=== PATIENT | female | born 1985 | race American Indian/Alaskan Native ===

== ENCOUNTER 2016-12-29 04:39 | Emergency (ER) | payer OTHER ==
[2016-12-29 05:15] VITALS: BP 116/66
[2016-12-29 05:27] LABS: Basophils % (Auto) 0.8 % (0.0-1.8); Eosinophils % (Auto) 3.8 % (0.0-4.3); Hematocrit 37.7 % (30.3-42.9); Hemoglobin 12.4 gm/dl (10.1-14.3); Mean Corpuscular HGB Conc 33 % (30-34); Mean Corpuscular Hemoglobin 27 pg (28-32); Mean Corpuscular Volume 82 fl (79-97); Platelet Count 289 K/mm3 (140-440); Red Cell Distribution Width 13.5 % (13.2-15.2); White Blood Count 9.3 K/mm3 (4.5-11.0)
[2016-12-29 05:50] LABS: Alanine Aminotransferase 12 units/L (7-56); Albumin 3.9 g/dL (3.9-5); Albumin/Globulin Ratio 1.4 %; Alkaline Phosphatase 54 units/L (35-129); Anion Gap 16 mmol/L; BUN/Creatinine Ratio 16.66; Bilirubin,Total < 0.2 mg/dL (0.1-1.2); Blood Urea Nitrogen 10 mg/dL (7-17); Calcium 9.1 mg/dL (8.4-10.2); Carbon Dioxide 24 mmol/L (22-30); Chloride 97.5 mmol/L (98-107); Glucose 115 mg/dL (65-100); Lipase 31 units/L (13-60); Potassium 3.6 mmol/L (3.6-5.0); Sodium 134 mmol/L (137-145); Total Protein 6.7 g/dL (6.3-8.2)
[2016-12-29 06:14] LABS: Bacteria,Urine 4+ /HPF (Negative); Bilirubin,Urine NEG (Negative); Blood,Urine MOD (Negative); Ketones,Urine NEG (Negative); Leukocyte Esterase,Urine MOD (Negative); Mucus,Urine 3+ /HPF; Nitrite,Urine POS (Negative); Protein,Urine <15 mg/dL mg/dL (Negative); Urobilinogen,Urine < 2.0 mg/dL (<2.0)
== END 2016-12-29 05:19 | disposition left against medical advice (07) ==
LOC: ED 04:39
DX: N89.8 Other specified noninflammatory disorders of vagina (principal); Z53.21 Procedure and treatment not carried out due to patient leaving prior to being seen by health care provider
CPT/HCPCS: 36415; 80053; 81001; 83690; 84703; 85025

== ENCOUNTER 2017-05-23 09:35 | Outpatient (CLI) | payer MEDICAID | END 2017-05-23 12:05 | disposition home or self-care (01) | LOC: LAB 09:35 → TRG 09:35 | PROVIDERS: ATTEND Obstetrics & Gynecology | DX: O36.0930 Maternal care for other rhesus isoimmunization, third trimester, not applicable or unspecified (principal); Z3A.28 28 weeks gestation of pregnancy | CPT/HCPCS: 86850; 86900; 86901; 96372; J2790 ==

== ENCOUNTER 2017-07-15 02:13 | Outpatient (CLI) | payer OTHER, MEDICAID ==
[2017-07-15 02:46] VITALS: BP 124/63
[2017-07-15 03:50] LABS: Bacteria,Urine 1+ /HPF (Negative); Bilirubin,Urine NEG (Negative); Blood,Urine NEG (Negative); Ketones,Urine TR mg/dL (Negative); Leukocyte Esterase,Urine LG (Negative); Mucus,Urine 3+ /HPF; Nitrite,Urine NEG (Negative)
[2017-07-15] MEDS ORDERED: MILK OF MAGNESIA PO ONE (04:09)
[2017-07-15] MEDS ORDERED: LACTATED RINGERS 1,000 ML IV SCH (05:00)
== END 2017-07-15 05:28 | disposition home or self-care (01) ==
LOC: EDSTATUS 02:26 → TRG 02:29
PROVIDERS: ATTEND Obstetrics & Gynecology
DX: O24.419 Gestational diabetes mellitus in pregnancy, unspecified control (principal); O26.893 Other specified pregnancy related conditions, third trimester; R07.9 Chest pain, unspecified; R42 Dizziness and giddiness; Z3A.35 35 weeks gestation of pregnancy
CPT/HCPCS: 81001; 96360; J7120; 59025

== ENCOUNTER 2017-08-09 13:05 | Inpatient (IN) | payer OTHER, MEDICAID ==
[2017-08-09] MEDS ORDERED: BRETHINE SUB-Q PRN (13:23)
[2017-08-09] MEDS ORDERED: ePHEDrine SULFATE IV PRN (13:23)
[2017-08-09] MEDS ORDERED: XYLOCAINE 2% INFILTRATI ONE (13:23)
[2017-08-09] MEDS ORDERED: BRETHINE IVP PRN (13:23)
[2017-08-09] MEDS ORDERED: SUBLIMAZE IV PRN (13:23)
[2017-08-09] MEDS ORDERED: POLYCILLIN/NS 2 GM/100 ML 2 GM/100 ML BAG IV ONE (13:23)
[2017-08-09] MEDS ORDERED: MINERAL OIL PO PRN (13:23)
--- NOTE | 2017-08-09 13:43 | History and Physical Report ---
History of Present Illness Date of examination: 08/09/17 Date of admission: 08/09/17 13:05 Chief complaint: in labor History of present illness: 32 y/o in active labor presents to office today and sent to hospital. GBS positive. care at [facility] since 7 weeks gestation. RH negative, Rhogam given 05/19. 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: herpes Social history: no significant social history - Obstetrical History Expected Date of Delivery: 08/15/17 Actual Gestation: 39 Week(s) 1 Day(s) : 5 Para: 3 Spontaneous Abortions: 2 Number of Living Children: 3 Medications and Allergies Allergies Allergy/AdvReac Type Severity Reaction Status Date / Time No Known Allergies Allergy Verified 11/01/13 09:02 Home Medications Medication Instructions Recorded Confirmed Last Taken Type Pnv95/Ferrous Fumarate/FA 1 each PO DAILY 05/23/17 05/23/17 1 Day Ago History [ Caplet] Active Meds: Active Medications Ephedrine Sulfate (Ephedrine Sulfate) 10 mg IV Q2M PRN PRN Reason: Hypotension Stop: 08/09/17 13:28 Fentanyl (Sublimaze) 100 mcg IV Q2H PRN PRN Reason: Labor Pain Ampicillin Sodium (Polycillin/Ns 1 Gm/50 Ml) 1 gm in 50 mls @ 100 mls/hr IV Q4HR MEERA PRN Reason: Protocol Ampicillin Sodium (Polycillin/Ns 2 Gm/100 Ml) 2 gm in 100 mls @ 100 mls/hr IV ONCE ONE PRN Reason: Protocol Stop: 08/09/17 14:22 Lactated Ringer's (Lactated Ringers) 1,000 mls @ 125 mls/hr IV DIRECT MEERA Oxytocin/Sodium Chloride (Pitocin/Ns 20 Unit/1000ml Drip) 20 units in 1,000 mls @ 125 mls/hr IV DIRECT MEERA Oxytocin/Sodium Chloride (Pitocin/Ns 30 Unit/500ml) 30 units in 500 mls @ 4 mls /hr IV TITR MEERA PRN Reason: Protocol Oxytocin/Sodium Chloride (Pitocin/Ns 30 Unit/500ml) 30 units in 500 mls @ 1 mls /hr IV TITR MEERA; 1 MILLIUNITS/MIN PRN Reason: Protocol Lidocaine (Xylocaine 2%) 20 ml INFILTRATI ONCE ONE Stop: 08/09/17 13:24 Mineral Oil (Mineral Oil) 30 ml PO QHS PRN PRN Reason: Constipation Terbutaline Sulfate (Brethine) 0.25 mg SUB-Q ONCE PRN PRN Reason: Hyperstimulation/Hypertonicity Stop: 08/09/17 13:24 Terbutaline Sulfate (Brethine) 0.25 mg IVP ONCE PRN PRN Reason: Hyperstimulation/Hypertonicity Stop: 08/09/17 13:24 Review of Systems All systems: negative - Vital Signs Vital signs: Vital Signs Temp Pulse Resp BP 98.9 F 96 H 18 123/70 08/09/17 13:30 08/09/17 13:30 08/09/17 13:30 08/09/17 13:30 Temp Pulse Resp BP Pulse Ox 98.9 F 96 H 18 123/70 08/09/17 13:30 08/09/17 13:33 08/09/17 13:30 08/09/17 13:33 - Physical Exam Breasts: Positive: deferred Cardiovascular: Regular rate Lungs: Positive: Clear to auscultation Abdomen: Positive: soft Genitourinary (Female): Positive: normal external genitalia Vulva: both: normal Vagina: Positive: normal moisture Uterus: Positive: enlarged Deep Tendon Reflex Grade: Normal +2 - Obstetrical FHR: category 1 Uterine Contraction Monitor Mode: External Cervical Dilatation: 4 Cervical Effacement Percentage: 70 station: 0 Results All other labs normal. Assessment and Plan A: Active labor at 39+weeks P :Expect
[2017-08-09] MEDS ORDERED: PITOCin/NS 30 UNIT/500ML 30 UNITS/500 ML BAG IV SCH (14:00)
[2017-08-09] MEDS ORDERED: PITOCin/NS 20 UNIT/1000ML DRIP 20 UNITS/1,000 ML BAG IV SCH (14:00)
[2017-08-09 14:29] LABS: Hemoglobin 12.8 gm/dl (10.1-14.3); Mean Corpuscular HGB Conc 34 % (30-34); Mean Corpuscular Hemoglobin 27 pg (28-32); Mean Corpuscular Volume 81 fl (79-97); Platelet Count 215 K/mm3 (140-440); Red Blood Count 4.68 M/mm3 (3.65-5.03); Red Cell Distribution Width 13.9 % (13.2-15.2); White Blood Count 7.4 K/mm3 (4.5-11.0)
[2017-08-09] MEDS: LACTATED RINGERS 1,000 ML IV SCH ×2 (14:33→15:44)
[2017-08-09] MEDS: PITOCin/NS 30 UNIT/500ML 30 UNITS/500 ML BAG IV SCH ×2 (15:03→15:29)
--- NOTE | 2017-08-09 15:33 | Event Note ---
Date: 08/09/17 O: VE 0, Pit at 8mu, Arom clear fluid, CAT I tracing A: IUP @ 39+ weeks P; Expect Epidural
[2017-08-09] MEDS ORDERED: ePHEDrine SULFATE ONE (16:45)
--- NOTE | 2017-08-09 17:22 | Procedure Note ---
OB Delivery Note - Delivery Date of Delivery: 08/09/17 Surgeon: ALEX CAMPBELL Estimated blood loss: 200cc - Vaginal Delivery presentation: vertex Delivery position: OA Intrapartum events: none Delivery induction: none Delivery augmentation: rupture of membranes, pitocin Delivery monitor: external FHT, external uterine Route of delivery: Delivery placenta: spontaneous Delivery cord: 3 umbilical vessels Episiotomy: none Delivery laceration: none Anesthesia: intravenous Delivery comments: of a viable Male 7#14.7 on 08/09/17 over intact perineum per nurse delivery with modified Franck. 8/9. Placenta delivered 3VCI per CNM. EBL 200cc. FF @ U-2 lochia small. Mother and baby doing well. - Infant A at 1 minute: 8 at 5 minutes: 9 Infant Gender: Male (7 # 14 oz)
[2017-08-09] MEDS ORDERED: TUCKS PAD TP PRN (17:27)
[2017-08-09] MEDS ORDERED: TYLENOL PO PRN (17:27)
[2017-08-09] MEDS ORDERED: POLYCILLIN/NS 1 GM/50 ML 1 GM/50 ML BAG IV SCH (17:30)
[2017-08-09] MEDS ORDERED: SODIUM CHLORIDE FLUSH SYRINGE 10 ML IV NR (18:00)
[2017-08-09] MEDS: MOTRIN PO SCH (20:07)
[2017-08-09] MEDS: NORCO 5/325 PO PRN (20:07)
[2017-08-10] MEDS: NORCO 5/325 PO PRN ×2 (03:05→20:43)
[2017-08-10] MEDS: MOTRIN PO SCH ×3 (03:06→12:36)
[2017-08-10 05:40] LABS: Hematocrit 34.3 % (30.3-42.9); Hemoglobin 11.8 gm/dl (10.1-14.3)
[2017-08-10] MEDS ORDERED: BOOSTRIX IM ONE (06:00)
--- NOTE | 2017-08-10 10:24 | Progress Note ---
Assessment and Plan A: PP Day #1 Stable P: Follow Routine Orders Depo Provera prior to discharge D/C Home today RTO in 3 Weeks Orders RTO in 1 week for Circumcision Subjective - Subjective Date of service: 08/10/17 Patient reports: appetite normal, voiding normally, pain well controlled, flatus , ambulating normally [place]: doing well Objective - Vital Signs Latest vital signs: Vital Signs Temp Pulse Resp BP BP 08/10/17 08:48 98.2 F 76 20 105/69 08/10/17 05:14 98.4 F 88 124/63 08/10/17 00:00 98.7 F 97 H 20 114/66 08/09/17 18:21 83 115/68 08/09/17 18:20 98.4 F 83 20 115/68 08/09/17 18:06 94 H 109/71 08/09/17 17:51 76 117/67 08/09/17 17:50 76 20 117/67 08/09/17 17:38 86 20 127/64 08/09/17 17:37 86 127/64 08/09/17 17:23 88 20 117/61 08/09/17 17:22 88 117/61 08/09/17 15:32 84 125/77 08/09/17 15:06 90 115/69 08/09/17 13:33 96 H 123/70 08/09/17 13:30 98.9 F 96 H 18 123/70 Intake and Output 08/09/17 08/10/17 08/10/17 22:59 06:59 14:59 Intake Total 147.917 480 120 Output Total 750 1400 Balance -602.083 -920 120 Intake: IV 147.917 Lactated Ringers 1,000 ml 147.917 @ 125 mls/hr IV DIRECT MEERA Rx#:[id number] Oral 480 120 Output: Urine 750 1400 Void 750 1400 Other: Total, Intake Amount 240 120 Total, Output Amount 750 800 # Voids Void 1 1 1 Estimated Blood Loss 200 - Exam Breasts: Present: normal Cardiovascular: Present: Regular rate Lungs: Present: Clear to auscultation, Normal air movement Abdomen: Present: normal appearance, soft, normal bowel sounds Uterus: Present: normal, firm, fundal height below umbilicus Extremities: Present: normal - Labs Labs: Abnormal lab results 08/09/17 Range/Units 13:45 MCH 27 L (28-32) pg
--- NOTE | 2017-08-10 10:25 | Discharge Summary ---
Providers - Providers Date of Admission: 08/09/17 13:05 Date of discharge: 08/10/17 Attending physician: LESLIE VIERA MD Primary care physician: LESLIE VIERA MD Hospitalization Reason for admission: active labor Delivery: Episiotomy: none Laceration: none Other procedures: none complications: none Discharge diagnosis: IUP at term delivered [place] baby: male Condition at discharge: Good Disposition: DC-01 TO HOME OR SELFCARE Plan - Provider Discharge Summary Activity: routine, no sex for 6 weeks, no heavy lifting 4 weeks, no strenuous exercise Diet: routine Instructions: routine Additional instructions: [] Smoking cessation referral if applicable(refer to patient education folder for contact #) [] Refer to [facility]'s [facility] Booklet Call your doctor immediately for: * Fever > 100.5 * Heavy vaginal bleeding ( >1 pad per hour) * Severe persistent headache * Shortness of breath * Reddened, hot, painful area to leg or breast * Drainage or odor from incision. * Keep incision clean and dry at all times and follow doctor's instructions regarding bathing/showering - Follow up plan Follow up: LESLIE VIERA MD [Primary Care Provider] - 09/01/17
[2017-08-10] MEDS ORDERED: DEPO-PROVERA (CONTRACEPTION) IM NR (11:00)
[2017-08-10] MEDS ORDERED: LANSINOH TP PRN (13:00)
[2017-08-11] MEDS: MOTRIN PO SCH ×3 (00:11→13:37)
[2017-08-11] MEDS: NORCO 5/325 PO PRN (04:13)
[2017-08-11 18:05] VITALS: BP 119/71
== END 2017-08-11 17:20 | disposition home or self-care (01) | DRG 775 ==
LOC: LD 13:05 → OB 19:24
PROVIDERS: ADMIT Obstetrics & Gynecology; ATTEND Obstetrics & Gynecology
PROC: 10E0XZZ Delivery of Products of Conception, External Approach (ICD-10-PCS; principal; 2017-08-09)
PROC: 3E0334Z Introduction of Serum, Toxoid and Vaccine into Peripheral Vein, Percutaneous Approach (ICD-10-PCS; 2017-08-09)
PROC: 3E0234Z Introduction of Serum, Toxoid and Vaccine into Muscle, Percutaneous Approach (ICD-10-PCS; 2017-08-09)
DX: O99.824 Streptococcus B carrier state complicating childbirth (principal); Z3A.39 39 weeks gestation of pregnancy; Z37.0 Single live birth; Z23 Encounter for immunization; Z67.21 Type B blood, Rh negative; O26.893 Other specified pregnancy related conditions, third trimester
CPT/HCPCS: 36415; 85014; 85018; 85027; 85461; 86850; 86900; 86901; 90471; 90715; 99211; G0463; J0290; J1050; J2590; J2790; J3010; J7120

== ENCOUNTER 2019-07-27 10:14 | Outpatient (CLI) | payer MEDICAID | END 2019-07-27 13:46 | disposition home or self-care (01) | LOC: LAB 10:14 → TRG 13:24 → LAB 13:46 | PROVIDERS: ATTEND Advanced Practice Midwife | DX: O09.892 Supervision of other high risk pregnancies, second trimester (principal); Z3A.26 26 weeks gestation of pregnancy | CPT/HCPCS: 86850; 86900; 86901; 96372; J2790 ==

== ENCOUNTER 2019-10-14 01:52 | Inpatient (IN) | payer OTHER, MEDICAID ==
[2019-10-14] MEDS ORDERED: AMPICILLIN/NS 2 GM/100 ML 2 GM/100 ML BAG IV ONE ×2 (02:40→03:12)
[2019-10-14] MEDS ORDERED: LACTATED RINGERS 1,000 ML ONE (02:50)
[2019-10-14] MEDS: LACTATED RINGERS 1,000 ML IV SCH ×2 (03:00→04:25)
[2019-10-14] MEDS ORDERED: BUTORPHANOL 2 MG/1 ML INJ IV PRN (03:12)
[2019-10-14] MEDS ORDERED: MINERAL OIL 30 ML ORAL LIQD PO PRN (03:12)
[2019-10-14] MEDS ORDERED: LIDOCAINE (2%) 20 MG/1 ML VIAL 20 ML MDV INFILTRATI ONE (03:12)
[2019-10-14] MEDS ORDERED: NALOXONE 0.4 MG/1 ML INJ IV PRN (03:12)
[2019-10-14] MEDS ORDERED: fentaNYL 100 MCG/2 ML INJ IV PRN (03:12)
[2019-10-14] MEDS ORDERED: TERBUTALINE 1 MG/1 ML INJ IVP PRN (03:12)
[2019-10-14] MEDS ORDERED: TERBUTALINE 1 MG/1 ML INJ SUB-Q PRN (03:12)
[2019-10-14] MEDS ORDERED: ONDANSETRON 4 MG/2 ML INJ IV PRN ×2 (03:12→12:15)
[2019-10-14] MEDS ORDERED: ePHEDrine SULFATE 50 MG/1 ML INJ IV PRN ×2 (03:12→04:03)
[2019-10-14 03:37] LABS: Basophils % (Auto) 0.5 % (0.0-1.8); Eosinophils # (Auto) 0.1 K/mm3 (0.0-0.4); Eosinophils % (Auto) 1.1 % (0.0-4.3); Hemoglobin 11.7 gm/dl (10.1-14.3); Lymphocytes # (Auto) 1.9 K/mm3 (1.2-5.4); Lymphocytes % (Auto) 25.1 % (13.4-35.0); Mean Corpuscular HGB Conc 34 % (30-34); Mean Corpuscular Volume 80 fl (79-97); Monocytes # (Auto) 0.6 K/mm3 (0.0-0.8); Monocytes % (Auto) 8.4 % (0.0-7.3); Platelet Count 226 K/mm3 (140-440); Red Blood Count 4.37 M/mm3 (3.65-5.03); Red Cell Distribution Width 16.1 % (13.2-15.2)
[2019-10-14] MEDS ORDERED: OXYTOCIN 20 UNIT/1000ML DRIP 20 UNITS/1,000 ML BAG IV SCH (04:00)
[2019-10-14] MEDS ORDERED: SODIUM CHLORIDE P/F VIAL 10 ML 10 ML ONE (04:03)
[2019-10-14] MEDS ORDERED: DEXMEDETOMIDINE 200 MCG/2 ML VIAL IV ONE (04:03)
[2019-10-14] MEDS ORDERED: NALOXONE 2 MG/2 ML INJ IV PRN (04:03)
--- NOTE | 2019-10-14 04:04 | Anesthesia Consultation ---
Anesthesia Consult and Med Hx Date of service: 10/14/19 - Airway Anesthetic Teeth Evaluation: Good ROM Head & Neck: Adequate Mental/Hyoid Distance: Adequate Mallampati Class: Class II Intubation Access Assessment: Probably Good - Pulmonary Exam CTA: Yes - Cardiac Exam Cardiac Exam: RRR - Pre-Operative Health Status ASA Pre-Surgery Classification: ASA2 Proposed Anesthetic Plan: Epidural - Pulmonary Hx Asthma: No COPD: No Hx Pneumonia: No - Cardiovascular System Hx Hypertension: Yes (June 2016) - Central Nervous System Hx Seizures: No Hx Psychiatric Problems: No - Endocrine Hx Renal Disease: No Hx End Stage Renal Disease: No Hx Hypothyroidism: No Hx Hyperthyroidism: No - Hematic Hx Anemia: No Hx Sickle Cell Disease: No - Other Systems Hx Alcohol Use: Yes ("social drinker")
[2019-10-14] MEDS ORDERED: fentaNYL-BUPIV 2 MCG/ML-0.125% 200 MCG/100 ML BAG EPIDURAL SCH (05:00)
[2019-10-14] MEDS ORDERED: OXYTOCIN DRIP 30 UNITS/500 ML BAG IV SCH (06:15)
--- NOTE | 2019-10-14 06:25 | History and Physical Report ---
History of Present Illness Date of examination: 10/14/19 Date of admission: 10/14/19 03:16 Chief complaint: contractions History of present illness: Pt is a 34 year old -[place] female JUDI 10/19/19 at 39w2d who presents with regular contractions and advanced cervical dilation of 5 cm. She denies vaginal bleeding or leakage of fluid. She has had care at [facility] since 11 wks complicated by obesity, genital herpes without lesion or prodrome, headache s/p Neurology referral, Depression on Zoloft 50 mg daily, glucose intolerance, h/o cardiac anomaly s/p [facility] referral 09/06, and Rh Negative status. She is GBS positive. 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 (remote history ), herpes Family/Genetic History: hypertension Social history: no significant social history - Obstetrical History Expected Date of Delivery: 10/19/19 Actual Gestation: 39 Week(s) 2 Day(s) : 7 Para: 4 Hx # Term Pregnancies: 4 Number of Pregnancies: 0 Spontaneous Abortions: 2 Induced : 0 Number of Living Children: 4 Medications and Allergies Allergies Allergy/AdvReac Type Severity Reaction Status Date / Time No Known Allergies Allergy Verified 10/14/19 02:09 Home Medications Medication Instructions Recorded Confirmed Last Taken Type Pnv No.95/Ferrous Fum/Folic AC 1 each PO DAILY 05/23/17 10/14/19 10/13/19 History [ Caplet] valACYclovir [Valtrex] 500 mg PO DAILY 10/14/19 10/14/19 10/12/19 History Active Meds: Active Medications Butorphanol Tartrate (Stadol) 2 mg IV Q2H PRN PRN Reason: Pain , Severe (7-10) Ephedrine Sulfate (Ephedrine Sulfate) 10 mg IV Q2M PRN PRN Reason: Hypotension Last Admin: 10/14/19 04:46 Dose: 10 mg Documented by: Fentanyl (Sublimaze) 100 mcg IV Q2H PRN PRN Reason: Labor Pain Oxytocin/Sodium Chloride (Pitocin/Ns 20 Unit/1000ml Drip) 20 units in 1,000 mls @ 125 mls/hr IV DIRECT MEERA Oxytocin/Sodium Chloride (Pitocin/Ns 30 Unit/500ml) 30 units in 500 mls @ 2 mls/hr IV TITR MEERA; Protocol Lactated Ringer's (Lactated Ringers) 1,000 mls @ 125 mls/hr IV DIRECT MEERA Last Admin: 10/14/19 04:25 Dose: 125 mls/hr Documented by: Ampicillin Sodium (Ampicillin/Ns 1 Gm/50 Ml) 1 gm in 50 mls @ 100 mls/hr IV Q4HR MEERA; Protocol Fentanyl/Bupivacaine/Sodium Chlor (Fentanyl-Bupiv 2 Mcg/Ml-0.125%) 200 mcg in 100 mls @ 12 mls/hr EPIDURAL TITR MEERA; Protocol Last Admin: 10/14/19 05:52 Dose: 12 mls/hr Documented by: Mineral Oil (Mineral Oil) 30 ml PO QHS PRN PRN Reason: Constipation Naloxone HCl (Naloxone) 0.2 mg IV Q5M PRN PRN Reason: Respiratory sedation Ondansetron HCl (Zofran) 4 mg IV Q8H PRN PRN Reason: Nausea And Vomiting Terbutaline Sulfate (Brethine) 0.25 mg SUB-Q ONCE PRN PRN Reason: Hyperstimulation/Hypertonicity Terbutaline Sulfate (Brethine) 0.25 mg IVP ONCE PRN PRN Reason: Hyperstimulation/Hypertonicity Review of Systems All systems: negative - Vital Signs Vital signs: Vital Signs Pulse BP 104 H 116/78 10/14/19 02:12 10/14/19 02:12 Temp Pulse Resp BP Pulse Ox 98.8 F 85 22 111/64 99 10/14/19 03:26 10/14/19 06:17 10/14/19 03:26 10/14/19 06:17 10/14/19 06:16 - Physical Exam Breasts: Positive: deferred Cardiovascular: Regular rate Lungs: Positive: Clear to auscultation Abdomen: Positive: soft (gravid, obese ) Genitourinary (Female): Positive: normal external genitalia Uterus: Positive: enlarged (gravid ) Extremities: Positive: normal - Obstetrical FHR: auscultation normal Uterine Contraction Monitor Mode: External Cervical Dilatation: 8 Cervical Effacement Percentage: 90 station: -2 Uterine Contraction Pattern: Regular Uterine Tone Measurement Phase: Resting Uterine Contraction Intensity: Strong/Firm Results Result Diagrams: 10/14/19 03:00 Abnormal lab results 10/14/19 Range/Units 03:00 MCH 27 L (28-32) pg RDW 16.1 H (13.2-15.2) % Sharkey % (Auto) 8.4 H (0.0-7.3) % All other labs normal. Assessment and Plan A: IUP at 39w2d Active labor GBS positive Genital Herpes without lesion or prodrome Depression on Zoloft 50 mg daily during Advanced Maternal Age P: Admit to labor and delivery GBS prophylaxis Routine intrapartum care Anticipate vaginal delivery
[2019-10-14] MEDS ORDERED: AMPICILLIN/NS 1 GM/50 ML 1 GM/50 ML BAG IV SCH (07:13)
--- NOTE | 2019-10-14 09:37 | Procedure Note ---
OB Delivery Note - Delivery Date of Delivery: 10/14/19 Surgeon: MIRTA CABRAL Estimated blood loss: 300cc - Vaginal Delivery presentation: vertex Delivery position: OA Intrapartum events: mult.variable deceleratio Delivery induction: none Delivery augmentation: rupture of membranes Delivery monitor: external FHT, external uterine Route of delivery: Delivery placenta: spontaneous Delivery cord: 3 umbilical vessels Episiotomy: none Delivery laceration: none Anesthesia: epidural Delivery comments: Pt progressed to complete/complete/+3 and pushed to deliver a viable female over intact perineum via under epidural anesthesia. Head deliver STEPHANIA, followed easily by shoulders and body. placed on maternal abdomen for bonding. Cord clamped and cut adn handed to NERY team. Cord blood collected. Placenta delivered spontaneously (3VC, Intact). Vagina and perineum explored. No lacerations. EBL 300mL. - A at 1 minute: 8 at 5 minutes: 9 Infant Gender: Female (3745g (8lb 4oz) @ 0910 am)
[2019-10-14] MEDS ORDERED: BENZOCAINE/MENTHOL 20/0.5% TOP SPRAY 56 GM TP PRN (12:15)
[2019-10-14] MEDS ORDERED: ACETAMINOPHEN 325 MG TAB PO PRN (12:15)
[2019-10-14] MEDS ORDERED: MAGNESIUM HYDROXIDE (MOM) ORAL LIQD UDC PO PRN (12:15)
[2019-10-14] MEDS ORDERED: WITCH HAZEL/ GLYCERIN PAD TP PRN (12:15)
[2019-10-14] MEDS ORDERED: PROMETHAZINE 25 MG RECT SUPP PR PRN (12:15)
[2019-10-14] MEDS ORDERED: LANOLIN/ZINC/DIMETHICONE (LANSINOH) 7 GM TP PRN ×2 (12:15)
[2019-10-14] MEDS ORDERED: PROMETHAZINE 25 MG TAB PO PRN (12:15)
[2019-10-14] MEDS ORDERED: diphenhydrAMINE 25 MG CAP PO PRN (12:15)
[2019-10-14] MEDS: FERROUS SULFATE 325 MG TAB PO SCH ×2 (12:57→22:00)
[2019-10-14] MEDS: IBUPROFEN 800 MG TAB PO SCH ×2 (12:57→18:00)
[2019-10-14] MEDS: HYDROcodone/ACETAMINOPHEN 5-325 MG TAB PO PRN (22:00)
[2019-10-14 22:05] LABS: Hematocrit 33.3 % (30.3-42.9); Hemoglobin 11.1 gm/dl (10.1-14.3)
[2019-10-15] MEDS: IBUPROFEN 800 MG TAB PO SCH ×4 (00:35→18:40)
[2019-10-15] MEDS ORDERED: MEASLES, MUMPS & RUBELLA 12,500 UNIT/0.5 ML VACCINE SUB-Q ONE (06:00)
[2019-10-15] MEDS ORDERED: TETANUS,DIPH,PERTUSS(ACELL) VACCINE 0.5 ML SYRINGE IM ONE (06:00)
--- NOTE | 2019-10-15 08:41 | Progress Note ---
Assessment and Plan A/P PPD1 routine orders considering d/c home tomorrow on zoloft for depression- no s/s of HI nor SI Subjective - Subjective Date of service: 10/15/19 Principal diagnosis: s/p Patient reports: appetite normal, voiding normally, pain well controlled, flatus, ambulating normally : doing well Objective - Vital Signs Latest vital signs: Vital Signs Temp Pulse Resp BP BP Pulse Ox 10/15/19 00:35 97.7 F 80 20 105/60 96 10/14/19 18:00 18 10/14/19 16:00 98.1 F 89 20 117/54 10/14/19 12:57 18 10/14/19 11:41 98.3 F 91 H 18 124/66 95 10/14/19 11:27 194 H 61 L 10/14/19 11:20 21 L 10/14/19 11:18 192 H 100 10/14/19 11:14 68 84 10/14/19 11:13 89 111/71 10/14/19 11:11 92 H 97 10/14/19 11:06 90 95 10/14/19 11:01 87 96 10/14/19 10:58 82 107/65 10/14/19 10:56 81 96 10/14/19 10:51 84 93 10/14/19 10:50 87 92 10/14/19 10:46 80 96 10/14/19 10:43 72 102/65 10/14/19 10:41 77 97 10/14/19 10:36 76 97 10/14/19 10:31 80 96 10/14/19 10:26 82 96 10/14/19 10:21 84 97 10/14/19 10:16 85 98 10/14/19 10:13 90 112/65 10/14/19 10:11 91 H 96 10/14/19 10:10 92 H 94 10/14/19 10:06 84 97 10/14/19 10:01 79 97 10/14/19 09:58 86 114/68 10/14/19 09:56 83 98 10/14/19 09:51 86 98 10/14/19 09:46 86 98 10/14/19 09:43 95 H 112/64 10/14/19 09:41 93 H 97 10/14/19 09:36 98 H 98 10/14/19 09:31 108 H 96 10/14/19 09:29 90 10/14/19 09:28 99 H 112/65 10/14/19 09:26 233 H 84 10/14/19 09:21 210 H 84 10/14/19 09:17 162 H 84 10/14/19 09:16 180 H 84 10/14/19 09:12 84 10/14/19 09:10 240 H 84 10/14/19 09:07 138 H 0 L 10/14/19 09:01 87 100 10/14/19 08:56 88 99 10/14/19 08:51 82 99 10/14/19 08:46 97 H 99 10/14/19 08:41 90 99 Intake and Output 10/14/19 10/15/19 10/15/19 23:59 07:59 15:59 Intake Total 600 240 Output Total 550 Balance 50 240 Intake: Oral 600 240 Output: Urine 550 Void 550 Other: Total, Intake Amount 240 240 Total, Output Amount 550 # Voids Void 1 1 - Exam Breasts: Present: normal Cardiovascular: Present: Regular rate, Normal S1 Lungs: Present: Clear to auscultation, Normal air movement Abdomen: Present: normal appearance, soft, normal bowel sounds. Absent: distention, tenderness, guarding Uterus: Present: normal, firm, fundal height below umbilicus. Absent: bogginess, tenderness Extremities: Present: normal Deep Tendon Reflex Grade: Normal +2 Incision: Present: normal
[2019-10-15] MEDS: FERROUS SULFATE 325 MG TAB PO SCH ×2 (09:30→22:46)
[2019-10-15] MEDS: HYDROcodone/ACETAMINOPHEN 5-325 MG TAB PO PRN ×2 (09:30→22:46)
--- NOTE | 2019-10-16 08:29 | Progress Note ---
Assessment and Plan A/P PPD2 routine orders d/c home tomorrow to f/u in 4 weeks hx of depression no sx and declines meds Subjective - Subjective Date of service: 10/16/19 Principal diagnosis: s/p Patient reports: appetite normal, voiding normally, pain well controlled, flatus, ambulating normally [place]: doing well Objective - Vital Signs Latest vital signs: Vital Signs Temp Pulse Resp BP Pulse Ox 10/16/19 00:54 98.3 F 77 18 122/72 94 10/15/19 16:33 98.3 F 81 20 122/72 95 Intake and Output 10/15/19 10/16/19 10/16/19 23:59 07:59 15:59 Intake Total 120 240 Balance 120 240 Intake: Oral 120 Intake, Free Water 240 Other: Total, Intake Amount 120 # Voids Void 1 2 - Exam Breasts: Present: normal Cardiovascular: Present: Regular rate, Normal S1 Lungs: Present: Clear to auscultation, Normal air movement Abdomen: Present: normal appearance, soft, normal bowel sounds. Absent: distention, tenderness, guarding Vulva: both: normal Uterus: Present: normal, firm, fundal height below umbilicus. Absent: bogginess, tenderness Extremities: Present: normal Deep Tendon Reflex Grade: Normal +2 Incision: Present: normal, dry, intact
--- NOTE | 2019-10-16 08:31 | Discharge Summary ---
Providers - Providers Date of Admission: 10/14/19 03:16 Date of discharge: 10/16/19 Attending physician: MIRTA CABRAL Primary care physician: MIRTA CABRAL Hospitalization Reason for admission: active labor Delivery: Episiotomy: none Laceration: none Incision: normal Other procedures: none Discharge diagnosis: IUP at term delivered baby: female Hospital course: routine PP care after delivering a viable male infant. f/u in 2 weeks for PP check ( hx of depression) Condition at discharge: Good Disposition: DC-01 TO HOME OR SELFCARE Plan - Discharge Medications Prescriptions: Ibuprofen [Motrin] 800 mg PO Q8HR PRN #30 tablet PRN Reason: Pain , Severe (7-10) HYDROcodone/APAP 5-325 [[place] 5/325] 1 each PO Q6HR PRN #20 tablet PRN Reason: Pain - Provider Discharge Summary Additional instructions: [] Smoking cessation referral if applicable(refer to patient education folder for contact #) [] Refer to [facility]'s [facility] Booklet Call your doctor immediately for: * Fever > 100.5 * Heavy vaginal bleeding ( >1 pad per hour) * Severe persistent headache * Shortness of breath * Reddened, hot, painful area to leg or breast * Drainage or odor from incision. * Keep incision clean and dry at all times and follow doctor's instructions regarding bathing/showering - Follow up plan Follow up: MIRTA CABRAL MD [Primary Care Provider] - 7 Days
[2019-10-16] MEDS: FERROUS SULFATE 325 MG TAB PO SCH (17:40)
[2019-10-16] MEDS: IBUPROFEN 800 MG TAB PO SCH (17:40)
[2019-10-16 18:10] VITALS: BP 130/77
== END 2019-10-16 19:00 | disposition home or self-care (01) | DRG 806 ==
LOC: TRG 01:52 → LD 03:16 → OB 12:46
PROVIDERS: ADMIT Obstetrics & Gynecology; ATTEND Obstetrics & Gynecology
PROC: 10E0XZZ Delivery of Products of Conception, External Approach (ICD-10-PCS; principal; 2019-10-14)
PROC: 3E0R3BZ Introduction of Anesthetic Agent into Spinal Canal, Percutaneous Approach (ICD-10-PCS; 2019-10-14)
PROC: 00HU33Z Insertion of Infusion Device into Spinal Canal, Percutaneous Approach (ICD-10-PCS; 2019-10-14)
PROC: 3E0234Z Introduction of Serum, Toxoid and Vaccine into Muscle, Percutaneous Approach (ICD-10-PCS; 2019-10-15)
PROC: 3E0234Z Introduction of Serum, Toxoid and Vaccine into Muscle, Percutaneous Approach (ICD-10-PCS; 2019-10-15)
DX: O99.824 Streptococcus B carrier state complicating childbirth (principal); O98.52 Other viral diseases complicating childbirth; Z37.0 Single live birth; Z3A.39 39 weeks gestation of pregnancy; Z82.49 Family history of ischemic heart disease and other diseases of the circulatory system; O99.214 Obesity complicating childbirth; B00.9 Herpesviral infection, unspecified; O26.893 Other specified pregnancy related conditions, third trimester; O99.344 Other mental disorders complicating childbirth; F32.9 Major depressive disorder, single episode, unspecified; O76 Abnormality in fetal heart rate and rhythm complicating labor and delivery; Z23 Encounter for immunization; Z67.21 Type B blood, Rh negative
CPT/HCPCS: 36415; 85014; 85018; 85025; 85461; 86850; 86900; 86901; 90471; 90715; 96360; 96361; 96365; 96366; G0378; A6250; J0290; J2590; J2790; J3490; J7120

== ENCOUNTER 2020-01-16 07:05 | Day surgery (SDC) | payer BC, MEDICAID ==
[2020-01-16] MEDS ORDERED: BUPIVACAINE/PF (0.5%) 5 MG/1 ML 30 ML VIAL INFILTRATI ONE ×2 (07:43→09:15)
--- NOTE | 2020-01-16 07:44 | Anesthesia Consultation ---
Anesthesia Consult and Med Hx Date of service: 01/16/20 - Airway Anesthetic Teeth Evaluation: Good, Chipped (cracked left lower premolar) ROM Head & Neck: Adequate Mental/Hyoid Distance: Adequate Mallampati Class: Class II Intubation Access Assessment: Probably Good - Pulmonary Exam CTA: Yes - Cardiac Exam Cardiac Exam: RRR - Pre-Operative Health Status ASA Pre-Surgery Classification: ASA2 Proposed Anesthetic Plan: General - Pulmonary Hx Smoking: Yes (former smoker quit 8yrs ago) Hx Respiratory Symptoms: No Hx Sleep Apnea: No (PANCHO PRE SCREEN LOW RISK.) - Cardiovascular System Hx Hypertension: Yes (not on medications) Hx Heart Attack/AMI: No Hx Percutaneous Transluminal Coronary Angioplasty (PTCA): No Hx Heart Murmur: Yes (reports neg cardiac work up 01/2019) - Central Nervous System CVA: No - Gastrointestinal Hx Gastroesophageal Reflux Disease: No - Endocrine Hx Renal Disease: No Hx Liver Disease: No Hx Insulin Dependent Diabetes: No Hx Non-Insulin Dependent Diabetes: No Hx Thyroid Disease: No - Other Systems Hx Alcohol Use: Yes (social) Hx Obesity: Yes (BMI 31) - Additional Comments Anesthesia Medical History Comments: No hx anesthetic complications.
--- NOTE | 2020-01-16 07:44 | Anesthesia Day of Surgery ---
Anesthesia Day of Surgery - Day of Surgery Patient Examined: Yes Patient H&P Reviewed: Yes Patient is NPO: Yes
[2020-01-16] MEDS ORDERED: MIDAZOLAM 2 MG/2 ML INJ IV NR (08:00)
[2020-01-16] MEDS ORDERED: GABAPENTIN 300 MG CAP PO NR (08:00)
[2020-01-16] MEDS ORDERED: CELECOXIB 200 MG CAP PO NR (08:00)
[2020-01-16] MEDS ORDERED: LACTATED RINGERS 1,000 ML IV SCH (08:00)
--- NOTE | 2020-01-16 08:13 | Short Stay Summary ---
Short Stay Documentation Date of service: 01/16/20 Narrative H&P: 35-year-old with undesired fertility. The patient has elected for permanent sterilization. The patient is aware of other contraceptive options. - History Principal diagnosis: Undesired fertility Past Medical History: other (Heart murmur) Past Surgical History: No surgical history Social history: single - Allergies and Medications Current Medications: Allergies No Known Allergies Allergy (Verified 10/14/19 02:09) Home Medications Medication Instructions Recorded Confirmed Last Taken Type Pnv No.95/Ferrous Fum/Folic AC 1 each PO DAILY 05/23/17 01/09/20 10/13/19 History [ Caplet] Active Medications Celecoxib (Celebrex) 200 mg PO PREOP NR Stop: 01/16/20 18:00 Gabapentin (Gabapentin) 600 mg PO PREOP NR Stop: 01/16/20 18:00 Hydromorphone HCl (Dilaudid) 0.5 mg IV Q10MIN PRN PRN Reason: Pain , Severe (7-10) Stop: 01/16/20 15:00 Lactated Ringer's (Lactated Ringers) 1,000 mls @ 100 mls/hr IV DIRECT MEERA Midazolam HCl (Versed) 2 mg IV PREOP NR Stop: 01/16/20 23:59 - Physical exam General appearance: no acute distress Integumentary: no rash HEENT: Atraumatic Lungs: Clear to auscultation Breasts: deferred Heart: Regular rate Gastrointestinal: normal Female Genitourinary: deferred Rectal Exam: deferred Extremities: no ischemia Neurological: Normal gait - Brief post op/procedure progress note Date of procedure: 01/16/20 Pre-op diagnosis: Undesired fertility Post-op diagnosis: same Procedure: Laparoscopic bilateral tubal ligation with Filshie clips Anesthesia: KARLEYA Surgeon: MIKKI GARCIA Estimated blood loss: none Pathology: none - Hospital course Hospital course: The patient was admitted the day of surgery and underwent a laparoscopic tubal ligation. Please see operative note for details of surgery. Postoperative course was uneventful. - Disposition Condition at discharge: Good Disposition: DC-01 TO HOME OR SELFCARE - Discharge Diagnoses (1) Unwanted fertility Status: Acute Short Stay Discharge Plan Activity: other (Pelvic rest for 1 week) Diet: regular Additional Instructions: Patient may return to work on TuesdayJanuary 20 Follow-up is not required Follow-up as needed Prescriptions: Ibuprofen [Motrin] 800 mg PO Q8HR PRN #60 tablet PRN Reason: Pain, Mild (1-3) HYDROcodone/APAP 5-325 [[place] 5/325] 1 each PO Q6HR PRN #20 tablet PRN Reason: Pain
[2020-01-16] MEDS ORDERED: LIDOCAINE MPF (2%) 20 MG/1 ML VIAL 5 ML ONE (08:23)
[2020-01-16] MEDS ORDERED: fentaNYL 100 MCG/2 ML INJ ONE (08:23)
[2020-01-16] MEDS ORDERED: ROCURONIUM 50 MG/5 ML INJ IV ONE (08:24)
[2020-01-16] MEDS ORDERED: propofoL 200 MG/20 ML VIAL IV ONE (08:24)
[2020-01-16] MEDS ORDERED: ONDANSETRON 4 MG/2 ML INJ ONE (08:24)
[2020-01-16] MEDS ORDERED: dexAMETHasone 20 MG/5 ML VIAL ONE (08:24)
[2020-01-16] MEDS ORDERED: KETOROLAC 30 MG/1 ML INJ ONE (09:43)
[2020-01-16] MEDS ORDERED: GLYCOPYRROLATE 0.4 MG/2 ML INJ ONE (09:43)
[2020-01-16] MEDS ORDERED: NEOSTIGMINE 10MG/10 ML INJ MDV ONE (09:43)
[2020-01-16] MEDS ORDERED: ESMOLOL 100 MG/10 ML INJ IV ONE (09:49)
--- NOTE | 2020-01-16 09:55 | Operative Report ---
Operative Report Operative Report: Date of surgery: January 16, 2020 Preoperative diagnosis: Unwanted fertility Postoperative diagnosis: Same as above Procedure: Laparoscopic bilateral tubal ligation with Filshie clips Surgeon: Ariadna Lawson M.D. Anesthesia: General endotracheal anesthesia Estimated blood loss: Minimal Findings: Normal uterus tubes and ovaries Indication: 35-year-old -0-2-5 with undesired fertility. The patient has elected to undergo permanent sterilization. Procedure: The patient was taken to the operating room and given general endotracheal anesthesia without complication. The patient is prepped and draped in a normal sterile fashion. A bivalve speculum was placed in the patient's vagina and a single-tooth tenaculum was placed on the anterior lip of the cervix .A uterine acorn manipulator was placed, and the bivalve speculum was then removed. Attention was then turned to the patient's abdomen where a 5 mm infraumbilical skin incision was then made. A Veress needle was placed and peritoneal entry was verified water-filled syringe. Insufflation of the peritoneal cavity was performed with CO2 gas. A 5 mm trocar was placed and the laparoscope was then inserted. The patient was then placed in Trendelenburg. A 7 mm suprapubic skin incision was then made. Under direct visualization a 7 mm trocar was then placed. General survey of the patient's abdomen revealed normal uterus tubes and ovaries. The fallopian tube was then followed out to the fimbriated end. A Filshie clip was placed, on the ampullary portion of the tube. This was performed on the contralateral side as well. The 7 mm trocar was then removed. The pneumoperitoneum was then released. The 5 mm trocar laparoscope was then removed. The skin incisions were then closed with 4-0 Monocryl. The incisions were injected with quarter percent Marcaine. Dressings were applied to the incision. The vaginal instruments were then removed atraumatically. Then successfully extubated and taken to the recovery room. All sponge laps and needle counts were correct x2.
[2020-01-16] MEDS: HYDROmorphone 1 MG/1 ML INJ IV PRN ×2 (10:06→10:16)
[2020-01-16] MEDS ORDERED: hydrALAZINE 20 MG/1 ML INJ IV PRN (10:22)
[2020-01-16] MEDS ORDERED: HYDROcodone/ACETAMINOPHEN 5-325 MG TAB PO PRN (10:29)
[2020-01-16 10:52] VITALS: BP 130/85
--- NOTE | 2020-01-16 11:36 | Post Anesthesia Evaluation ---
- Post Anesthesia Evaluation Patient Participated: Yes Airway Patent: Yes Stable Respiratory Function: Yes Nausea/Vomiting: No Temp > 96.8F: Yes Pain Manageable: Yes Adequeate Hydration: Yes Anesthesia Complications: No
== END 2020-01-16 11:30 | disposition home or self-care (01) ==
LOC: OR 07:05
PROVIDERS: ATTEND Obstetrics & Gynecology
DX: Z30.2 Encounter for sterilization (principal); G43.909 Migraine, unspecified, not intractable, without status migrainosus; I10 Essential (primary) hypertension; E66.9 Obesity, unspecified; F32.9 Major depressive disorder, single episode, unspecified; Z72.89 Other problems related to lifestyle; Z87.440 Personal history of urinary (tract) infections; Z68.31 Body mass index [BMI] 31.0-31.9, adult; Z98.890 Other specified postprocedural states; Z83.3 Family history of diabetes mellitus; Z79.899 Other long term (current) drug therapy; Z82.49 Family history of ischemic heart disease and other diseases of the circulatory system
CPT/HCPCS: 58671; 81025; J0360; J1100; J1170; J1885; J2250; J2405; J2704; J2710; J3010; J7120

== ENCOUNTER 2020-11-05 09:04 | Day surgery (SDC) | payer BC, MEDICAID ==
--- NOTE | 2020-11-05 08:50 | History and Physical Report ---
History of Present Illness Date of examination: 11/05/20 Chief complaint: dysfunctional uterine bleeding History of present illness: Pt is a 35 year old -Greek female who presents for surgical evaluation of dysfunctional uterine bleeding after failed medical management. Past History Past Medical History: other (h/o heart murmur ) Past Surgical History: RN CCU/uterine surgery (tubal ligation ) RN CCU History: gonorrhea (remote history ), herpes, other (ovarian cyst ) Family/Genetic History: hypertension Social history: no significant social history - Obstetrical History : 7 Para: 5 Hx # Term Pregnancies: 5 Number of Pregnancies: 0 Spontaneous Abortions: 2 Induced : 0 Number of Living Children: 5 Medications and Allergies Allergies Allergy/AdvReac Type Severity Reaction Status Date / Time No Known Allergies Allergy Verified 10/29/20 17:48 Home Medications Medication Instructions Recorded Confirmed Last Taken Type No Known Home Medications [No 10/29/20 10/29/20 Unknown History Reported Home Medications] Review of Systems All systems: negative - Physical Exam Breasts: Positive: deferred Cardiovascular: Regular rate Lungs: Positive: Clear to auscultation Extremities: Positive: normal Results All other labs normal. Assessment and Plan A: Dysfunctional Uterine Bleeding P: Proceed with hysteroscopy, dilation and curettage, possible Myosure endometrial sampling and other indicated procedures
[~2020-11-05 09:04] MED LIST: LACTATED RINGERS 1,000 ML IV SCH; ceFAZolin/Water 2 GM/20 ML 2 GM/20 ML SYRINGE IV NR
[2020-11-05 10:10] LABS: Hematocrit 26.2 % (30.3-42.9); Hemoglobin 8.3 gm/dl (10.1-14.3); Mean Corpuscular HGB Conc 32 % (30-34); Mean Corpuscular Volume 69 fl (79-97); Platelet Count 391 K/mm3 (140-440); Red Blood Count 3.81 M/mm3 (3.65-5.03); Red Cell Distribution Width 21.5 % (13.2-15.2)
--- NOTE | 2020-11-05 10:36 | Anesthesia Day of Surgery ---
Anesthesia Day of Surgery - Day of Surgery Patient Examined: Yes Patient H&P Reviewed: Yes Patient is NPO: Yes
--- NOTE | 2020-11-05 10:37 | Anesthesia Consultation ---
Anesthesia Consult and Med Hx Date of service: 11/05/20 - Airway Anesthetic Teeth Evaluation: Chipped (Broken) ROM Head & Neck: Adequate Mental/Hyoid Distance: Adequate Mallampati Class: Class II Intubation Access Assessment: Good - Pre-Operative Health Status ASA Pre-Surgery Classification: ASA2 Proposed Anesthetic Plan: General - Pulmonary Hx Smoking: Yes (former smoker quit 8yrs ago) Hx Asthma: No Hx Respiratory Symptoms: No (+2FS) COPD: No Hx Pneumonia: No Hx Sleep Apnea: No (PANCHO PRE SCREEN LOW RISK.) - Cardiovascular System Hx Hypertension: Yes (not on medications) Hx Heart Attack/AMI: No Hx Percutaneous Transluminal Coronary Angioplasty (PTCA): No Hx Heart Murmur: Yes - Central Nervous System Hx Seizures: No CVA: No Hx Psychiatric Problems: No - Gastrointestinal Hx Gastroesophageal Reflux Disease: No - Endocrine Hx Renal Disease: No Hx End Stage Renal Disease: No Hx Liver Disease: No Hx Insulin Dependent Diabetes: No Hx Non-Insulin Dependent Diabetes: No Hx Thyroid Disease: No Hx Hypothyroidism: No Hx Hyperthyroidism: No - Hematic Hx Anemia: Yes (8.3/26.2) Hx Sickle Cell Disease: No - Other Systems Hx Alcohol Use: Yes (Occas) Hx Cancer: No Hx Obesity: Yes (BMI 33)
[2020-11-05] MEDS ORDERED: SILVER NITRATE APPLICATOR 1 EA TP ONE (10:59)
[2020-11-05] MEDS ORDERED: MIDAZOLAM 2 MG/2 ML INJ ONE (11:19)
[2020-11-05] MEDS ORDERED: propofoL 200 MG/20 ML VIAL IV ONE (11:19)
[2020-11-05] MEDS ORDERED: ONDANSETRON 4 MG/2 ML INJ ONE (11:29)
[2020-11-05] MEDS ORDERED: fentaNYL 100 MCG/2 ML INJ ONE (11:29)
[2020-11-05] MEDS ORDERED: ePHEDrine SULFATE 50 MG/1 ML INJ ONE (11:53)
[2020-11-05] MEDS ORDERED: PHENYLEPHRINE/NS 1,000 MCG/10 ML SYRINGE (OR USE) IV ONE (11:57)
[2020-11-05] MEDS ORDERED: GLYCOPYRROLATE 0.4 MG/2 ML INJ ONE (12:00)
--- NOTE | 2020-11-05 12:26 | Operative Report ---
Operative Report Operative Report: Date of Procedure: November 05, 2020 Preoperative Diagnosis: 1) Dysfunctional Uterine Bleeding Postoperative Diagnosis: Same Procedure: 1) Hysteroscopy 2) Dilation and Curettage Surgeon: Laurence Cain MD Findings: 1) Anteverted uterus that sounded to 9 cm 2) Proliferative tissue in endometrial cavity visible on hysteroscopy Anesthesia: GETA EBL: 10 mL Urine output: 100 mL, clear prior to the procedure Specimen: Endometrial curettings to pathology Complications: None. Counts correct x 2 Disposition: Stable to PACU Indication for Procedure: The patient is a 35 year old -[place] female who presents for surgical evaluation of dysfunctional uterine bleeding after failed medical horace gement. Operation in detail: After the risks, complications, alternatives and benefits were signed to the patient she gave informed consent for the procedure. She was subsequently taken to the operating room with her IV noted to be running well and placed in the dorsal supine position. SCDs were noted to be in place and functioning. General anesthesia was then induced without difficulty. The patient was then placed in the dorsal lithotomy position and prepped and draped in normal sterile fashion. A timeout was performed. An exam under anesthesia revealed an anteverted uterus. The bladder was then drained with a catheter yielding 100 mL of clear urine. An open sided bivalve speculum was placed into the vagina for adequate visualization of the cervix. A single-tooth tenaculum was placed on the anterior lip of the cervix for traction. The uterus was then gently sounded to 9 cm. The cervix was then serially dilated with Sumner dilators to a #18. The hysteroscope was then in troduced into the uterine cavity with findings of a proliferative endometrium. At this time the hysteroscope was removed and a sharp curettage was performed of all four quadrants and the endometrial curettings were sent to pathology. All instruments were removed from the uterus atraumatically. Next, the single-tooth tenaculum was removed from the cervix. The tenaculum puncture sites were hemostatic with use of pressure and silver nitrate. All instruments were removed from the vagina atraumatically and the procedure was ended. The patient was placed into the dorsal supine position and extubated without difficulty. She was subsequently taken to the PACU in stable condition. She tolerated the procedure well. All counts were correct 2.
--- NOTE | 2020-11-05 12:30 | Short Stay Summary ---
Short Stay Documentation Date of service: 11/05/20 - History H&P: dictated Social history: no significant social history - Allergies and Medications Current Medications: Allergies No Known Allergies Allergy (Verified 10/29/20 17:48) Home Medications Medication Instructions Recorded Confirmed Last Taken Type No Known Home Medications [No 10/29/20 10/29/20 Unknown History Reported Home Medications] Active Medications Lactated Ringer's (Lactated Ringers) 1,000 mls @ 75 mls/hr IV DIRECT MEERA Cefazolin Sodium (Ancef/Sterile Water 2 Gm/20 Ml) 2 gm in 20 mls @ 80 mls/hr IV PREOP NR; Protocol Stop: 11/05/20 16:00 - Physical exam Breasts: deferred - Brief post op/procedure progress note Date of procedure: 11/05/20 Pre-op diagnosis: Dysfunctional Uterine Bleeding Post-op diagnosis: same Procedure: Hysteroscopy, Dilation and Curettage Anesthesia: GETA Findings: 1) Anteverted uterus that sounded to 9 cm 2) Proliferative tissue in endometrial cavity visible on hysteroscopy Surgeon: MIRTA CAIN Estimated blood loss: minimal (10 mL) Pathology: list (endometrial curettings) Specimen disposition: to lab Condition: stable - Hospital course Hospital course: Pt underwent hysteroscopy, dilation and curettage which she tolerated well. She was observed in the PACU until she met discharge criteria. She will follow up in the office in 2-[address] Cain. - Disposition Condition at discharge: Stable Disposition: DC-01 TO HOME OR SELFCARE - Discharge Diagnoses (1) DUB (dysfunctional uterine bleeding) Status: Acute Short Stay Discharge Plan Activity: other (Nothing in vagina, no intercourse, for 4 wks ) Weight Bearing Status: Full Weight Bearing Diet: regular Follow up with: PRIMARY CAREMD [Primary Care Provider] - 7 Days MIRTA CAIN MD [Staff Physician] - 11/26/20 (Please schedule a postop appt any day the week of November 24, 2020) Prescriptions: Docusate Sodium [Colace] 100 mg PO BID PRN #60 capsule PRN Reason: Constipation Ferrous Sulfate [Feosol 325 MG tab] 325 mg PO BID #60 tablet Ibuprofen [Motrin] 800 mg PO Q8HR PRN #30 tablet PRN Reason: Pain, Moderate (4-6) oxyCODONE /ACETAMINOPHEN [Percocet 5/325] 1 tab PO Q6HR PRN #20 tablet PRN Reason: Pain
[2020-11-05] MEDS ORDERED: HYDROmorphone 1 MG/1 ML INJ ONE ×2 (12:35→12:55)
[2020-11-05] MEDS: HYDROmorphone 1 MG/1 ML INJ IV PRN ×3 (12:38→12:58)
[2020-11-05] MEDS ORDERED: ONDANSETRON 4 MG/2 ML INJ IV PRN (12:39)
[2020-11-05 13:16] VITALS: BP 112/65
--- NOTE | 2020-11-05 17:44 | Post Anesthesia Evaluation ---
- Post Anesthesia Evaluation Patient Participated: Yes Airway Patent: Yes Stable Respiratory Function: Yes Nausea/Vomiting: No Temp > 96.8F: Yes Pain Manageable: Yes Adequeate Hydration: Yes Anesthesia Complications: No Block Receding Appropriately: Not Applicable Patient on Ventilator: No
== END 2020-11-05 13:35 | disposition home or self-care (01) ==
LOC: OR 09:04
PROVIDERS: ATTEND Obstetrics & Gynecology
DX: N93.8 Other specified abnormal uterine and vaginal bleeding (principal); N85.8 Other specified noninflammatory disorders of uterus; I10 Essential (primary) hypertension; E66.9 Obesity, unspecified; F32.9 Major depressive disorder, single episode, unspecified; Z98.51 Tubal ligation status; Z87.440 Personal history of urinary (tract) infections; D64.9 Anemia, unspecified; Z72.89 Other problems related to lifestyle; Z98.890 Other specified postprocedural states; Z83.3 Family history of diabetes mellitus; Z68.33 Body mass index [BMI] 33.0-33.9, adult; Z79.899 Other long term (current) drug therapy; Z82.49 Family history of ischemic heart disease and other diseases of the circulatory system
CPT/HCPCS: 36415; 58558; 81025; 85027; 88305; J0690; J1170; J2250; J2370; J2405; J2704; J3010; J7120